=== PATIENT | female | born 1990 | race Caucasian/White ===

== ENCOUNTER 2016-11-10 12:12 | Emergency (ER) | payer OTHER, BC ==
[~2016-11-10] VITALS: Ht 175.3 cm; Wt 97.7 kg
[~2016-11-10 12:12] MED LIST: AMOX250C PO; OXYC1SOL6 PO; Z.0.BCPILL PO; ZOLO25TA PO; [UNRECOGNIZED DRUG - OTHER] PO
[2016-11-10 12:14] VITALS: BP 146/87; PULSE 86; RESP 20; TEMP 98.9; O2SAT 100
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
[2016-11-10] MEDS ORDERED: METHOCARBAMOL 500 MG TAB PO ONE (12:45)
[2016-11-10] MEDS ORDERED: ROBA500T PO (13:12)
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
== END 2016-11-10 13:52 | disposition home or self-care (01) ==
LOC: NEPK 12:12
DX: M25.561 Pain in right knee (principal); S46.811A Strain of other muscles, fascia and tendons at shoulder and upper arm level, right arm, initial encounter; S46.812A Strain of other muscles, fascia and tendons at shoulder and upper arm level, left arm, initial encounter; M62.830 Muscle spasm of back; M54.2 Cervicalgia; V89.2XXA Person injured in unspecified motor-vehicle accident, traffic, initial encounter; Y92.410 Unspecified street and highway as the place of occurrence of the external cause
CPT/HCPCS: 73564; 99283; E0113